=== PATIENT | female | born 1995 | race Two or more races ===

== ENCOUNTER 2019-06-11 04:07 | Inpatient (IN) | payer MEDICAID ==
[~2019-06-11] VITALS: Ht 160 cm; Wt 73.5 kg
[2019-06-11] VITALS (20 sets, daily range): BP systolic 90–133; BP diastolic 45–83
[2019-06-11 05:45] LABS: Urine Bacteria FEW /hpf (None Seen); Urine Blood Negative /uL (Negative); Urine Mucus FEW (None Seen); Urine Specific Gravity 1.014 (1.001-1.035); Urine WBC 5 /hpf (0 - 5)
[2019-06-11 05:53] LABS: Basophils # (auto) 0 uL; Basophils % (auto) 0.2 % (0.0-2.0); Eosinophils # (auto) 0.1 uL; Eosinophils % (auto) 0.9 % (0.0-7.0); Hematocrit 32.2 % (36.0-46.0); Hemoglobin 10.7 g/dL (12.2-16.2); Lymphocytes # (auto) 2.2 uL; Mean Corpuscular Hemoglobin 28.3 pg (28.0-32.0); Mean Corpuscular Hgb Conc. 33.4 g/dL (32.0-36.0); Mean Corpuscular Volume 84.7 fL (80.0-100.0); Monocytes # (auto) 0.9 uL; Monocytes % (auto) 6.8 % (0.0-12.0); Neutrophils # (auto) 10.6 uL; Neutrophils % (auto) 76.1 % (37.0-80.0); Nucleated Red Blood Cells % 0.1 %; Platelet Count (auto) 211 10^3/uL (140-450); Red Cell Distribution Width 16.5 % (11.8-14.3); White Blood Cell 13.9 10^3/uL (4.4-10.8)
[2019-06-11] MEDS ORDERED: PREN-96 PO (05:55)
[2019-06-11 06:12] LABS: INR < 0.93 (0.9-1.15); Partial Thromboplastin Time 27.1 sec (23.64-32.05)
[2019-06-11] MEDS: LACTATED RINGER'S 1,000 ML IV SCH ×3 (06:15→21:37)
[2019-06-11] MEDS ORDERED: MIDAZOLAM HCL 1MG/1ML-2 ML VIAL ONE (06:54)
[2019-06-11] MEDS ORDERED: BUPIVACAINE/DEXTROSE MPF 0.75% 2 ML AMP IT ONE (06:54)
[2019-06-11] MEDS ORDERED: MORPHINE SULF(PF) 0.5MG/ML 10ML VIAL ONE (06:54)
[2019-06-11] MEDS ORDERED: fentaNYL CITRATE 100 MCG/2 ML VL ONE (06:54)
[2019-06-11] MEDS ORDERED: SODIUM CHLORIDE LOCK 10 ML ONE (06:54)
[2019-06-11] MEDS ORDERED: EPINEPHrine HCL 1 MG/1 ML AMP ONE (06:54)
[2019-06-11] MEDS ORDERED: OXYTOCIN 10 UNIT/ML 10ML VIAL ONE (06:54)
[2019-06-11] MEDS ORDERED: ceFAZolin 1GM VL ONE (06:54)
[2019-06-11] MEDS ORDERED: TETRACAINE 1% INJ 2 ML VIAL IJ ONE (07:11)
[2019-06-11] MEDS ORDERED: LACT. RINGERS/OXYTOCIN 20UNITS 1,000 ML IV SCH (07:14)
[2019-06-11] MEDS ORDERED: ceFAZolin 1GM/50ML 50 ML IV SCH (07:15)
[2019-06-11] MEDS ORDERED: MORPHINE SULFATE 4 MG/ML SYR/VIAL IV PRN (07:15)
[2019-06-11] MEDS ORDERED: ONDANSETRON HCL 4 MG/2 ML VIAL IV PRN (07:15)
[2019-06-11 07:20] LABS: Albumin 2.5 g/dL (3.4-5.0); BUN/Creatinine Ratio 14.9; Calcium 8.5 mg/dL (8.5-10.1)
[2019-06-11 07:22] LABS: Bilirubin, Total 0.3 mg/dL (0.2-1.0); Total Protein 6.2 g/dL (6.4-8.2)
[2019-06-11] MEDS ORDERED: fentaNYL CITRATE 100 MCG/2 ML VL IV PRN (08:30)
[2019-06-11] MEDS ORDERED: METOCLOPRAMIDE HCL 5MG/ml INJ 2ml VIAL IV PRN (08:30)
[2019-06-11] MEDS ORDERED: HYDROmorphone HCL 2 MG/ML VL IV PRN (08:30)
[2019-06-11] MEDS ORDERED: diphenhdrAMINE HCL 50 MG/1 ML VL IV PRN (08:30)
[2019-06-11] MEDS ORDERED: NALOXONE HCL 0.4 MG/ML VIAL IV PRN (08:30)
--- NOTE | 2019-06-11 08:58 | NUR ---
Post Op for LDRP: Received patient from PACU via bed to room 8B. Patient A/A/Ox4, abdominal binder and bilateral SCD's are in place, IV fluids placed on pump and infusing per order, incisional site dressing clean/dry/intact and Cha Catheter to gravity draining clear yellow urine. Incentive Spirometer at bedside and instruction on proper use with return demonstration done by patient. Fundus assessed and massaged. Vitals signs taken and placed on frequent/q 15 mins assessment. Board updated. Updated on POC, pain management, call light, bed low, sd rails up x2. Bedrest for 12 hours, NPO until passing gas. Verbalized understanding of all information. at bedsd.
[2019-06-11] MEDS: ceFAZolin 1GM/50ML 50 ML IV SCH ×2 (15:24→23:17)
--- NOTE | 2019-06-11 18:30 | NUR ---
Opening Shift Note Received report and assumed care of patient, awake and alert. No S/S of distress/SOB or pain. Instructed patient and family to call for assist if needed and verbalized understanding . Will continue to monitor.
[2019-06-11 20:25] LABS: Basophils # (auto) 0 uL; Basophils % (auto) 0.2 % (0.0-2.0); Eosinophils # (auto) 0.1 uL; Eosinophils % (auto) 0.4 % (0.0-7.0); Hematocrit 34.1 % (36.0-46.0); Hemoglobin 10.9 g/dL (12.2-16.2); Lymphocytes # (auto) 1.4 uL; Lymphocytes % (auto) 8.7 % (10.0-50.0); Mean Corpuscular Hemoglobin 27.2 pg (28.0-32.0); Mean Corpuscular Hgb Conc. 32.1 g/dL (32.0-36.0); Mean Corpuscular Volume 84.7 fL (80.0-100.0); Monocytes % (auto) 6.2 % (0.0-12.0); Neutrophils # (auto) 13.6 uL; Neutrophils % (auto) 84.5 % (37.0-80.0); Platelet Count (auto) 220 10^3/uL (140-450); Red Blood Cells 4.02 10^6/uL (4.0-5.20); Red Cell Distribution Width 16.5 % (11.8-14.3)
[2019-06-12] VITALS (10 sets, daily range): BP systolic 100–127; BP diastolic 57–86
--- NOTE | 2019-06-12 03:00 | NUR ---
Ambulation: Patient OOB with standby assistance by RN. Patient ambulated to bathroom with steady gait. Clean gown provided and bed linen changed. Patient ambulated back to bed with steady gait and no distress noted.
--- NOTE | 2019-06-12 05:23 | NUR ---
Wright catheter dc'd Order to discontinue wright catheter. Wright dc'd with clean technique following deflation of balloon. Patient tolerated well with no complaints of pain. Continue care.
[2019-06-12 06:06] LABS: RPR Non Reactive (Non Reactive)
[2019-06-12] MEDS: ceFAZolin 1GM/50ML 50 ML IV SCH (06:41)
[2019-06-12 07:19] LABS: Basophils # (auto) 0.1 uL; Basophils % (auto) 0.4 % (0.0-2.0); Eosinophils # (auto) 0 uL; Eosinophils % (auto) 0.1 % (0.0-7.0); Hematocrit 33.5 % (36.0-46.0); Hemoglobin 11.1 g/dL (12.2-16.2); Lymphocytes # (auto) 0.9 uL; Lymphocytes % (auto) 4.6 % (10.0-50.0); Mean Corpuscular Hemoglobin 27.7 pg (28.0-32.0); Mean Corpuscular Volume 83.9 fL (80.0-100.0); Monocytes % (auto) 4.9 % (0.0-12.0); Neutrophils # (auto) 17.9 uL; Platelet Count (auto) 224 10^3/uL (140-450); Red Blood Cells 3.99 10^6/uL (4.0-5.20); Red Cell Distribution Width 16.6 % (11.8-14.3); White Blood Cell 19.9 10^3/uL (4.4-10.8)
[2019-06-12] MEDS ORDERED: LACTATED RINGER'S 1,000 ML IV SCH (08:35)
[2019-06-12] MEDS ORDERED: BISACODYL 10 MG RECT SUPP PR PRN (08:45)
[2019-06-12] MEDS: DOCUSATE SOD 100 MG CAP PO SCH ×2 (10:30→21:58)
[2019-06-12] MEDS ORDERED: HYDROcodone-ACET 5/325MG TAB PO PRN ×2 (11:00)
[2019-06-12] MEDS: SIMETHICONE 80 MG CHEWABLE TABLET PO SCH ×3 (12:00→21:58)
[2019-06-12] MEDS: IBUPROFEN 800 MG TAB PO PRN (14:48)
--- NOTE | 2019-06-12 18:05 | NUR ---
received report, assumed care from Rebekah CARDENAS
--- NOTE | 2019-06-12 18:30 | NUR ---
Initiated assessment. Reviewed plan of care and discussed goals. See flowsheet for complete assessment.
--- NOTE | 2019-06-12 19:30 | NUR ---
Out of bed, ambulating, denies poain. complete ambulation 500 feet, tolerated well.
--- NOTE | 2019-06-12 20:15 | NUR ---
IV left forearm, wrapped in plastic prep for shower. Pt in shower. All supplies provided for shower. Fresh linen provided, change/bed made.
[2019-06-13 03:00] VITALS: BP 110/68
[2019-06-13] MEDS: SIMETHICONE 80 MG CHEWABLE TABLET PO SCH ×4 (05:21→21:43)
[2019-06-13 07:05] VITALS: BP 126/80
[2019-06-13] MEDS: DOCUSATE SOD 100 MG CAP PO SCH ×2 (10:20→21:43)
[2019-06-13] MEDS: IBUPROFEN 800 MG TAB PO PRN ×2 (10:22→18:52)
[2019-06-13 11:20] VITALS: BP 127/72
[2019-06-13 15:00] VITALS: BP_SYST 129; BP_DIAS 86; BP_DIAS 96
[2019-06-13 18:30] VITALS: BP 133/78
--- NOTE | 2019-06-13 18:30 | NUR ---
IV removal IV DC'd with sterile technique, catheter fully intact. Pressure dressing applied to site. Patient tolerated procedure well.
[2019-06-13 23:11] VITALS: BP 106/82
[2019-06-14 02:38] VITALS: BP 115/70
[2019-06-14] MEDS: IBUPROFEN 800 MG TAB PO PRN (02:38)
[2019-06-14] MEDS: SIMETHICONE 80 MG CHEWABLE TABLET PO SCH (05:23)
[2019-06-14 07:00] VITALS: BP 111/61
[2019-06-14] MEDS: DOCUSATE SOD 100 MG CAP PO SCH (09:53)
[2019-06-14 11:00] VITALS: BP 110/74
--- NOTE | 2019-06-14 12:05 | NUR ---
Discharge: Patient taken to vehicle while ambulation by request with all personal belongings, accompanied by staff and family member. No distress noted at time of departure, no adverse changes in status since initial assessment.
== END 2019-06-14 12:05 | disposition home or self-care (01) | DRG 540 ==
LOC: LDRP 04:07
PROVIDERS: ADMIT Specialist; ATTEND Specialist
PROC: 10D00Z1 Extraction of Products of Conception, Low, Open Approach (ICD-10-PCS; principal; 2019-06-11 07:14)
DX: O34.211 Maternal care for low transverse scar from previous cesarean delivery (principal); Z37.0 Single live birth; Z3A.39 39 weeks gestation of pregnancy
CPT/HCPCS: 36415; 51702; 59025; 80053; 81001; 81002; 84112; 85025; 85610; 85730; 86592; 86850; 86870; 86900; 86901; 94762; 96365; 96366; G0378; J0171; J0690; J2250; J2590